=== PATIENT | male | born 1950 | race Caucasian/White ===

== ENCOUNTER → 2017-02-21 | Outpatient (CLI) | payer OTHER, BC ==
[~2017-02-21] VITALS: Ht 180.3 cm; Wt 84.8 kg
[~2017-02-21] MED LIST: ACETAMINOPHEN-1 EAC1 PO; ALERTNESS AID200 MG PO; AMBIEN 5 MG TABL5 M1 PO; ASPIR 8181 MG PO; BENADRYL25 MG PO; BENTYL 10 MG CA10 MG PO; CIALIS5 MG PO; CLOBETASOL EMOL15 GM TP; CRESTOR10 MG PO; DIGESTIVE PROB1 EACH PO; GAVISCON 80-141 EACH PO; GLUCOSAMINE CH1 EAC7 PO; MYLANTA; NIZORAL A-D200 ML TP; PEPCID20 MG PO; PROTONIX40 M1 PO; SONATA10 MG PO; TUMS PO; UNICOMPLEX M TA1 TA1 PO; VALIUM5 MG PO; WELCHOL 625 MG625 M1 PO; WELLBUTRIN XL300 MG PO; XANAX 0.25 MG0.25 MG PO
--- NOTE | ~2017-02-21 | HPC ---
[facility] [address] [address] PAIN MANAGEMENT CONSULTATION Name: STEPHANIE QUIÑONEZ Room #: REG JAYLA Seals.#: [id number] Admission: 02/21/17 Attend Phys: Lorne Cross MD Discharge: Date of : 48 Report #: [id number] THIS REPORT FOR: //name// CC: ALBERTO Cross DATE OF REGISTRATION: 02/21/2017. Followup visit for low back pain with radiculopathy. HISTORY OF PRESENT ILLNESS: The patient is in the clinic today for relatively short visit talked for only about 15 minutes before proceeding on for an epidural injection. He has done remarkably well with the injections and his and he both report that has been a dramatic decrease in his pain and this is also resulted in improvement in his mood. Both are quite pleased. Pain is returning a bit and his have scheduled for a vacation upcoming. He would like another injection today. Pain is reported as 2 with medication 4 at its worse. Pain is across his low back and radiates down into his legs. MEDICATIONS: Reviewed and reconciled, unchanged from previous visits. ALLERGIES: None. PHYSICAL EXAMINATION: GENERAL: He is very loquacious, obsessive compulsive, pleasantly so, 67-year-old. VITAL SIGNS: His blood pressure is 128/75, heart rate 74. EXTREMITIES: He has pain and tenderness across his low back and positive straight leg raising discomfort, worse on the left than the right. IMPRESSION: Chronic low back pain with radiculopathy. PROCEDURE: Epidural steroid injection under fluoroscopic guidance. We will performance it L4-L5, where he has a spondylolisthesis. PROCEDURE: Epidural steroid injection under fluoroscopic guidance. PROCEDURE IN DETAIL: He was taken to fluoroscopic suite, placed prone, skin prepped with ChloraPrep. Skin anesthetized over L4-L5. A 20-gauge Tuohy epidural needle advanced first attempt in the epidural space with loss of resistance. There was no blood or CSF aspirated. 1 mL of Omnipaque was injected. Good spread of dye was observed was followed by 2 mL of 0.5% lidocaine mixed with 80 mg of triamcinolone. He tolerated the procedure well and was observed for 45 minutes and discharged. [facility] [address] [place] [address] PAIN MANAGEMENT CONSULTATION Name: STEPHANIE QUIÑONEZ Room #: REG [facility].#: [id number] Admission: 02/21/17 Attend Phys: Lorne Cross MD Discharge: Date of : 48 Report #: [id number] Followup visit planned as needed. By: [id number] Lorne Cross MD /nt
[2017-02-21 14:33] VITALS: BP 129/88
== END | disposition home or self-care (01) ==
LOC: PAIN 07:12
DX: M54.16 Radiculopathy, lumbar region (principal); M43.16 Spondylolisthesis, lumbar region; G89.29 Other chronic pain

== ENCOUNTER → 2017-06-17 | Outpatient (CLI) | payer OTHER, BC ==
[~2017-06-17] VITALS: Ht 180.3 cm; Wt 90.4 kg
[2017-06-17 14:21] VITALS: BP 147/88
== END | disposition home or self-care (01) ==
LOC: PAIN 07:26
DX: M54.16 Radiculopathy, lumbar region (principal); G89.29 Other chronic pain; Z79.899 Other long term (current) drug therapy

== ENCOUNTER → 2017-10-21 | Outpatient (CLI) | payer OTHER, BC ==
[~2017-10-21] VITALS: Ht 180.3 cm; Wt 93.7 kg
--- NOTE | ~2017-10-21 | HPC ---
[facility] [address] [address] [address] PAIN MANAGEMENT CONSULTATION Name: STEPHANIE QUIÑONEZ Room #: REG JAYLA SealsMarco Antonio#: [id number] Admission: 10/21/17 Attend Phys: Lorne Cross MD Discharge: Date of : 48 Report #: [id number] THIS REPORT FOR: //name// CC: ALBERTO Cross DATE OF SERVICE: 10/21/2017 Followup visit for recurrent lumbar radiculopathy. The patient returns to the pain clinic today for an epidural injection. The chart will reflect that he has been receiving injections almost like clockwork every 4 months. He says that it takes about a week for the pain to begin to pablito and then he has substantial greater than 90% pain relief that persists for over 2 months to 3 months. When the pain gradually begins to return, he in time comes back to the clinic for another injection. He has an occasional flare during the four month interval, but not severe enough to warrant return to the clinic and he takes a little bit of Tylenol No. 3 as needed. Other painful concerns are osteoarthritis of the right knee. He has been receiving Synvisc injections taking his last shot before . It took about two weeks for that to take effect, but he is also now walking better. He does not smoke. We discussed exercise and the importance of doing it. He does not use opioid medication. He has a primary care physician, Dr. Alberto Green, who follows him for medical conditions. He does not have hypertension. His osteoarthritis is confined primarily to his right knee. I do not prescribe his opioids, but he understands that Tylenol No. 3 is a mild opioid and he must be careful in safeguarding it. We have discussed the opioid crisis in [place] in the past. I think his use is appropriate. PHYSICAL EXAMINATION: A pleasant 67-year-old. Blood pressure 140/90, heart rate 82, respirations 14 and BMI is 28.8. He is able to easily move from sitting to standing position and ambulates with only mild antalgic features. Mild tenderness of the right knee. Straight leg raising is mildly positive on the right. He has pain across his low back with forward flexion and extension. He has tenderness in the paravertebral region. IMPRESSION: Chronic low back pain with radiculopathy. Degenerative disk disease at L4-L5 and L5-S1. He has responded beautifully to injections at L4-L5. I will repeat the same today under fluoroscopic guidance. Risks and benefits discussed. PROCEDURE: Lumbar epidural steroid injection, L4-L5 [place] [address] PAIN MANAGEMENT CONSULTATION Name: STEPHANIE QUIÑONEZ Room #: REG JAYLA Moore#: [id number] Admission: 10/21/17 Attend Phys: Lorne Cross MD Discharge: Date of : 48 Report #: [id number] Skin was prepped with ChloraPrep and anesthetized. A 20-gauge Tuohy epidural needle advanced in the epidural space with loss of resistance on the first attempt. There was no blood or CSF aspirated. 1 mL of Omnipaque injected with good spread of dye observed followed by 4 mL of 1% lidocaine mixed with 80 mg of triamcinolone. He tolerated the procedure well and was observed for 45 minutes in the recovery room and then discharged. Follow up as needed. No medications were written today for the patient. By: [id number] Lorne Cross MD /nt
[2017-10-21 14:07] VITALS: BP 140/90
== END | disposition home or self-care (01) ==
LOC: PAIN 07:16
DX: M51.36 Other intervertebral disc degeneration, lumbar region (principal); G89.29 Other chronic pain; M17.11 Unilateral primary osteoarthritis, right knee; Z79.891 Long term (current) use of opiate analgesic; Z79.82 Long term (current) use of aspirin; Z79.899 Other long term (current) drug therapy

== ENCOUNTER → 2018-05-26 | Outpatient (CLI) | payer OTHER, BC ==
[~2018-05-26] VITALS: Ht 180.3 cm; Wt 87.5 kg
--- NOTE | ~2018-05-26 | HPC ---
[facility] [address] [place] [address] PAIN MANAGEMENT CONSULTATION Name: STEPHANIE QUIÑONEZ Room #: REG JAYLA SealsMarco Antonio#: [id number] Admission: 05/26/18 Attend Phys: Lorne Cross MD Discharge: Date of : 48 Report #: [id number] THIS REPORT FOR: //name// CC: ALEENA Sheffield Physician staff Lorne Cross DATE OF SERVICE: 05/26/2018 Followup visit for lumbar radiculopathy. I last saw the patient towards the end of January when he received an epidural injection. He always gets some relief that varies in degree and duration, but the response is generally quite good. It improves his ability to be active and functional around the house. He would like another epidural injection today. I did not provide medication for him. All of his pain medications are provided by Dr. Aleena Sheffield. His only opioid medication is Tylenol No. 3, which he takes for severe pain episodes. He scores his pain today as a 3-4 worse with standing, lifting and bending. Pain radiates from the low back down into his legs. It is generally worse on left, but today right seems to be bothersome, so he typically has bilateral lumbar radiculopathy. All medications are reviewed and reconciled. He is on no blood thinners. ALLERGIES: None. X-ray demonstrates a spondylolisthesis at L4-L5, grade 1 facet arthropathy and foraminal compromise. No central stenosis. PHYSICAL EXAMINATION: He is pleasant. Blood pressure 135/81, heart rate 67 and respirations 16. BMI 26.9. Tenderness across the low back and some pain with forward flexion. Straight leg raising is positive also bilaterally into the back and hips. Back extension increases symptoms of discomfort in the back. IMPRESSION: Low back pain with spondylolisthesis and radiculopathy. RECOMMENDATIONS: Epidural steroid injection under fluoroscopic guidance. PROCEDURE: He was taken to the fluoroscopic suite, placed prone, skin prepped with ChloraPrep. Skin anesthetized over the L4-L5 interspace. Needle was advanced into the midline using loss of resistance. There was no blood or CSF [facility] [address] [place] [address] PAIN MANAGEMENT CONSULTATION Name: STEPHANIE QUIÑONEZ Room #: REG [facility].#: [id number] Admission: 05/26/18 Attend Phys: Lorne Cross MD Discharge: Date of : 48 Report #: [id number] aspirated. 1 mL of Omnipaque injected with good spread of dye observed into the epidural space followed by 3 mL of 0.5% lidocaine. He tolerated the procedure well and was observed for 45 minutes and discharged. Followup visit planned as needed. <ELECTRONICALLY SIGNED> By: Lorne Cross MD 05/28/18 1622 [id number] Lorne Cross MD /nt
[2018-05-26 13:34] VITALS: BP 135/81
== END | disposition home or self-care (01) ==
LOC: PAIN 06:27
DX: M54.16 Radiculopathy, lumbar region (principal); G89.29 Other chronic pain; M43.16 Spondylolisthesis, lumbar region; Z98.890 Other specified postprocedural states; Z79.82 Long term (current) use of aspirin; Z79.899 Other long term (current) drug therapy

== ENCOUNTER → 2018-09-22 | Outpatient (CLI) | payer OTHER, BC ==
[~2018-09-22] VITALS: Ht 180.3 cm; Wt 86.5 kg
[~2018-09-22] MED LIST changes: +FLOMAX0.4 MG PO
--- NOTE | ~2018-09-22 | HPC ---
[facility] [address] [place] [address] PAIN MANAGEMENT CONSULTATION Name: STEPHANIE QUIÑONEZ Room #: REG JAYLA Teresa#: [id number] Admission: 09/22/18 Attend Phys: Lorne Cross MD Discharge: Date of : 48 Report #: [id number] THIS REPORT FOR: //name// CC: TWYLA SALOMON Physician staff Lorne Lopez DATE OF SERVICE: 09/22/2018 Followup visit for chronic low back pain with radiculopathy. The patient returns to the pain clinic today for an epidural injection. He gets good relief from his injections. His last injection was in May. He has evidence of spondylolisthesis at L4-L5, grade 1 and facet arthropathy with neural foraminal compromise. This is felt to be the cause of his pain. He responds beautifully. He reports that he has been diagnosed with prostate cancer by biopsy. He has scheduled at [facility], a robotic prostatectomy in November. He has done quite a bit of research as one might expect. His and he both agreed that he is obsessive compulsive. He has had his questions answered and is prepared for his ongoing surgery. He scores his pain today without activities at 2/10, but it can increase significantly with standing, lifting or bending. Medications provided outside of the clinic have also been helpful. I have reviewed all medication from the electronic medical record. PHYSICAL EXAMINATION: He is pleasant, slender 68-year-old gentleman with a BMI of 26.6. He moves from sitting to standing position and walks with mild antalgic features. His blood pressure is 144/76, heart rate 75 and respirations 16. There is some pain across his low back with flexion and extension. Straight leg raising reproduces pain bilaterally in the L4-L5 distribution. Sensation is intact. No focal weakness is noted. IMPRESSION: Chronic low back pain with spondylolisthesis and radiculopathy. He has excellent response measuring in months following an epidural injection and would like to proceed today with another injection. PROCEDURE: He was taken to the fluoroscopic suite, placed prone, skin prepped with ChloraPrep. Skin was anesthetized over the L4-L5 interspace. A 20-gauge Tuohy epidural needle advanced in the epidural space with loss of resistance technique. There was no blood or CSF aspirated. 1 mL of Omnipaque injected. Good spread of dye observed into the epidural space followed by 3 mL of 0.5% [address] [address] PAIN MANAGEMENT CONSULTATION Name: STEPHANIE QUIÑONEZ [facility] #: [facility] [id number] Admission: 09/22/18 Attend Phys: Lorne Cross MD Discharge: Date of : 48 Report #: [id number] lidocaine mixed with 80 mg of triamcinolone. He tolerated the procedure well and was observed for 45 minutes and discharged. Follow up as needed. By: [id number] Lorne Cross MD /nanda
[2018-09-22 13:51] VITALS: BP 144/76
== END | disposition home or self-care (01) ==
LOC: PAIN 08:21
DX: M54.16 Radiculopathy, lumbar region (principal); G89.29 Other chronic pain; M43.16 Spondylolisthesis, lumbar region; M46.96 Unspecified inflammatory spondylopathy, lumbar region; Z79.82 Long term (current) use of aspirin; Z79.899 Other long term (current) drug therapy; Z98.890 Other specified postprocedural states

== ENCOUNTER → 2019-02-16 | Outpatient (CLI) | payer OTHER, BC ==
[~2019-02-16] VITALS: Ht 180.3 cm; Wt 86.2 kg
[~2019-02-16] MED LIST changes: +BIOTIN1000 MCG PO; +LAMISIL AT 1% C12 G1 TOP; +LOPERAMIDE 2 MG2 M1 PO; +ZOLOFT50 MG PO
--- NOTE | ~2019-02-16 | HPC ---
[facility] [address] [address] [address] PAIN MANAGEMENT CONSULTATION Name: STEPHANIE QUIÑONEZ Room #: REG JAYLA Seals.#: [id number] Admission: 02/16/19 ������������������ Attend Phys: Lorne Cross MD Discharge: ������������������ Date of : 48 Report #: [id number] THIS REPORT FOR: //name// CC: PAM FLYNN Physician staff Lorne Cross DATE OF SERVICE: 02/16/2019 Followup visit for chronic low back pain with radiculopathy, lumbar spondylolisthesis, L4-L5. The patient returns to pain clinic today requesting an epidural injection. We have been performing epidural injections four times annually and he has had excellent response to each injection. He completed his robotic prostatectomy in November. He has done well. Dr. Thomas performed the surgery at and all went well. He has recovered nicely from his surgery. He was doing reasonably well from back standpoint up until about two weeks ago. He has gradually had increasing pain. Pain is now more severe and he is taking more Tylenol No. 3. He takes no more than two tablets daily typically and this provides some relief. PQRS review shows that there is no history of osteoarthritis. His BMI is 26.5. His pain intensity with pain medication is 2/10. It can be twice to three times at high. He is not a fall risk, nor has he fallen. He is not on blood thinners, nor is he on medication for hypertension. I do not provide opioid medications and so, he has not signed an opioid agreement with our clinic. He is considered at low risk, having completed an opioid risk tool in our clinic. SOCIAL HISTORY: Denies use of tobacco, drinks alcohol socially with his . PHYSICAL EXAMINATION: Height 5 feet 11 inches, weight 190 pounds, BMI 26.5. His blood pressure 139/76, heart rate 66, respirations 14. Moves easily from sitting to standing position. He is wearing suspenders. He has been wearing them since his prostate surgery for comfort. He has some tenderness across his low back pain with forward flexion and extension, which reproduces some pain radiating into the hips, but no significant radicular component today. MRI scan shows spondylolisthesis L4-L5 and pars defect. IMPRESSION: Chronic low back pain with intermittent radiculopathy and spondylolisthesis, L4-L5. Pain follows an L4-L5 distribution. [address] [address] PAIN MANAGEMENT CONSULTATION Name: STEPHANIE QUIÑONEZ Room #: REG JAYLA Teresa#: [id number] Admission: 02/16/19 ������������������ Attend Phys: Lorne Cross MD Discharge: ������������������ Date of : 48 Report #: [id number] RECOMMENDATION: Epidural steroid injection under fluoroscopic guidance. PROCEDURE: The patient was taken to fluoroscopic suite for treatment, placed prone, skin prepped with ChloraPrep. Skin anesthetized over the L4-L5 interspace. A 20-gauge Tuohy epidural needle advanced into the epidural space in the first attempt with loss of resistance. There was no blood or CSF aspirated. 1 mL of Omnipaque injected, nice spread of dye observed into the epidural space followed by 3 mL of 0.5% lidocaine mixed with 80 mg of triamcinolone. He tolerated the procedure well, was observed for 45 minutes and discharged. Followup visit as needed. ��������������������������������������������� ���������������������������������������� By: ��������������������������������������������� [id number] Lorne Cross MD /nt
[2019-02-16 14:17] VITALS: BP 139/76
--- NOTE | 2019-02-16 14:33 | NUR ---
Pain Clinic Assessment: 1. History of Osteoarthritis: Not Applicable History of Rheumatoid Arthritis: Not Applicable 2. Height: 5 ft. 11 in. 180.3 cm. Weight: 190.0 lb. oz. 86.184 kg. Patient's BMI: 26.5 3. Vital Signs: BP: 139/76 Pulse: 66 Resp: 14 Temp: 02 Sat: 97 ECG Mon: 4. Pain Intensity: 2-TOOK PAIN MED 5. Fall Risk: Dizziness: N Needs help standing or walking: N Fallen in the last 3 months: N Fall risk comments: 6. Patient on Blood Thinner: None 7. History of Hypertension: N 8. Opioid Therapy greater than 6 weeks: N Opiate Contract Signed: 9. Risk Assessment Tool Provided: 0-low risk 10. Functional Assessment Tool: 11. Recreational Drug Use: Never Drug Type: Tobacco Use: Never Smoker Tobacco Type: Amount or Packs/day: How Many Years: Alcohol Use: Yes Frequency: Quant:
== END | disposition home or self-care (01) ==
LOC: PAIN 07:11
DX: M54.16 Radiculopathy, lumbar region (principal); G89.29 Other chronic pain; M43.16 Spondylolisthesis, lumbar region; Z98.890 Other specified postprocedural states; Z79.899 Other long term (current) drug therapy

== ENCOUNTER → 2019-05-21 | Outpatient (CLI) | payer OTHER, BC ==
[~2019-05-21] VITALS: Ht 180.3 cm; Wt 91.1 kg
--- NOTE | ~2019-05-21 | HPC ---
[facility] [address] [address] PAIN MANAGEMENT CONSULTATION Name: STEPHANIE QUIÑONEZ Room #: REG JAYLA Teresa#: [id number] Admission: 05/21/19 ������������������ Attend Phys: Lorne Cross MD Discharge: ������������������ Date of : 48 Report #: [id number] THIS REPORT FOR: //name// CC: FAM unknown TWYLA AIME Lorne Cross DATE OF SERVICE: 05/21/2019 Followup visit for chronic low back pain with radiculopathy. Lumbar spondylosis with stenosis at L4-L5. The patient returns to the clinic today for an epidural injection. It has been 3-1/2 months since his last injection. Continues to report improvement following injections for a period of months, but then the pain gradually returns. He is recovering from his prostatectomy. He says he is doing reasonably well. He has a new physician, they will be seeing tomorrow at . Also continued to complain of other aches and pains including pain in his right knee, which has been treated with injections. PQRS: Positive for osteoarthritis, particularly of the right knee and lumbar spondylosis, associated with the changes of the facet joints around the level of his stenotic segment. His height is 5 feet 11 inches and his weight 220. BMI is 28. He has a pain intensity at rest of 1-2/10, but it can increase significantly with movement. He is not a fall risk, nor has he fallen in the last 3 months. He is on no blood thinning medication nor does he take medication for hypertension. He does not take opioids from our office, but takes a small amount of Tylenol #3 from his primary care physician. He has completed an opioid risk tool and is considered at low risk for addiction. He denies tobacco, but drinks modest amount of alcohol in a social setting with his . PHYSICAL EXAMINATION: Pleasant, alert, and oriented, moves from sitting to standing position, ambulates without antalgic features. Tenderness across his low back and positive straight leg raising that radiates pain primarily in the left leg. IMPRESSION: Lumbar spondylosis L4-L5 with pars defect. L4-L5 radiculopathy on the left. PROCEDURE: Epidural steroid injection under fluoroscopic guidance. PROCEDURE: Taken to fluoroscopic suite, placed prone, skin prepped with [address] [address] PAIN MANAGEMENT [facility]ATION [facility] #: REG JAYLA Moore#: [id number] Admission: 05/21/19 ������������������ Attend Phys: Lorne Cross MD Discharge: ������������������ Date of : 48 Report #: [id number] ChloraPrep. Skin anesthetized over the L4-L5 interspace. A 20-gauge Tuohy epidural needle was advanced in the epidural space with loss of resistance technique. No blood in the CSF was aspirated. A 1 mL of Omnipaque was injected. Good spread of dye observed in the epidural space followed by 3 mL of 0.5% lidocaine with 80 mg of triamcinolone. He tolerated the procedure well, was observed for 45 minutes and discharged. Follow up as needed. ��������������������������������������������� ���������������������������������������� By: ��������������������������������������������� [id number] Lorne Cross MD /nt
[2019-05-21 14:13] VITALS: BP 137/88
--- NOTE | 2019-05-21 14:55 | NUR ---
Pain Clinic Assessment: 1. History of Osteoarthritis: Not Applicable History of Rheumatoid Arthritis: Not Applicable 2. Height: 5 ft. 11 in. 180.3 cm. Weight: 200.8 lb. oz. 91.082 kg. Patient's BMI: 28.0 3. Vital Signs: BP: 137/88 Pulse: 70 Resp: 14 Temp: 02 Sat: 98 ECG Mon: 4. Pain Intensity: 1-2 5. Fall Risk: Dizziness: N Needs help standing or walking: N Fallen in the last 3 months: N Fall risk comments: 6. Patient on Blood Thinner: None 7. History of Hypertension: N 8. Opioid Therapy greater than 6 weeks: N Opiate Contract Signed: 9. Risk Assessment Tool Provided: 0-low risk 10. Functional Assessment Tool: 11. Recreational Drug Use: Never Drug Type: Tobacco Use: Never Smoker Tobacco Type: Amount or Packs/day: How Many Years: Alcohol Use: Yes Frequency: Quant:
== END | disposition home or self-care (01) ==
LOC: PAIN 12:46
DX: M47.26 Other spondylosis with radiculopathy, lumbar region (principal); G89.29 Other chronic pain; M17.11 Unilateral primary osteoarthritis, right knee; Z79.899 Other long term (current) drug therapy; Z90.79 Acquired absence of other genital organ(s); Z98.890 Other specified postprocedural states

== ENCOUNTER → 2019-09-17 | Outpatient (CLI) | payer OTHER, BC ==
[~2019-09-17] VITALS: Ht 180.3 cm; Wt 90.6 kg
[~2019-09-17] MED LIST changes: +FUROSEMIDE 20 M20 MG PO; +ROSUVASTATIN CA20 MG PO; +VENTOLIN HFA 1818 GM INH
[2019-09-17 14:03] VITALS: BP 122/83
--- NOTE | 2019-09-17 14:35 | NUR ---
Pain Clinic Assessment: 1. History of Osteoarthritis: Not Applicable History of Rheumatoid Arthritis: Not Applicable 2. Height: 5 ft. 11 in. 180.3 cm. Weight: 199.8 lb. oz. 90.629 kg. Patient's BMI: 27.9 3. Vital Signs: BP: 122/83 Pulse: 72 Resp: 16 Temp: 02 Sat: 100 ECG Mon: 4. Pain Intensity: 3 WITH PROLONGED SITTING 5. Fall Risk: Dizziness: N Needs help standing or walking: N Fallen in the last 3 months: N Fall risk comments: 6. Patient on Blood Thinner: None 7. History of Hypertension: N 8. Opioid Therapy greater than 6 weeks: N Opiate Contract Signed: 9. Risk Assessment Tool Provided: 0-low risk 10. Functional Assessment Tool: 11. Recreational Drug Use: Never Drug Type: Tobacco Use: Never Smoker Tobacco Type: Amount or Packs/day: How Many Years: Alcohol Use: Yes Frequency: Quant:
== END | disposition home or self-care (01) ==
LOC: PAIN 07:04
DX: M47.26 Other spondylosis with radiculopathy, lumbar region (principal); M43.16 Spondylolisthesis, lumbar region; Z98.890 Other specified postprocedural states; Z79.899 Other long term (current) drug therapy; Z90.49 Acquired absence of other specified parts of digestive tract; Z87.442 Personal history of urinary calculi

== ENCOUNTER → 2020-01-14 | Outpatient (CLI) | payer OTHER, BC ==
[~2020-01-14] VITALS: Ht 180.3 cm; Wt 92.5 kg
[~2020-01-14] MED LIST changes: +AMBIEN CR12.5 MG PO; +BREO ELLIPTA 21 EACH INH; +VALIUM10 MG PO
--- NOTE | ~2020-01-14 | HPC ---
[facility] [place] [address] PAIN MANAGEMENT CONSULTATION Name: STEPHANIE QUIÑONEZ Room #: REG JAYLA [facility].#: [id number] Admission: 01/14/20 Attend Phys: Lorne Cross MD Discharge: Date of : 48 Report #: [id number] THIS REPORT FOR: cc: [facility] - Clinic physician unknown [facility] - Clinic physician unknown Lorne Cross MD ~ CC: [facility] unknown Lorne Cross DATE OF SERVICE: 01/14/2020 Followup visit for chronic low back pain with radiculopathy. The patient is a longstanding patient of the clinic who has responded favorably to epidural injections about every 3-4 months. His last injection was performed on 09/17/2019 nearly 4 months ago. Pain is now returning. He has been able to improve his day-to-day activities and he accounts improvement in his enjoyment of life from a level of 8/10 interference to 2/10 interference by pain to the beneficial effects of his epidural injections. He is here today reporting a pain score of 1. Although when the pain is intermittently increased as it was last week, the pain can be a 7-8. Pain is in his low back, right hip, right leg and follows a dermatomal distribution. He has spondylolisthesis and we would inject him at that level or above. It is grade 1. There may also be some discogenic pain contributing to pain across his low back. MEDICATIONS: Zolpidem, Valium, Breo, Cialis, rosuvastatin, Lasix, bupropion, Tylenol No. 3, multivitamins, clobetasol, Nizoral, Sonata, Crestor. ALLERGIES: None. PHYSICAL EXAMINATION: GENERAL: Pleasant gentleman. VITAL SIGNS: Blood pressure 154/90, heart rate 91. He moves independently. From sitting to standing, his gait is mildly antalgic. He has pain across his lumbosacral segment, pain with forward flexion, extension, rotation, and side to side movements. Sensation is normal. No focal weakness is noted. IMPRESSION: Low back pain with radiculopathy, which has responded nicely to epidural injections. PROCEDURE: Epidural injection L4-L5 under fluoroscopic guidance. [facility] [address] [place] [address] PAIN MANAGEMENT CONSULTATION Name: STEPHANIE QUIÑONEZ Room #: REG JAYLA [facility].#: [id number] Admission: 01/14/20 Attend Phys: Lorne Cross MD Discharge: Date of : 48 Report #: [id number] DESCRIPTION OF PROCEDURE: After informed consent, he was taken to the fluoroscopic suite, placed prone, skin prepped with ChloraPrep. Skin anesthetized over the L4-L5 interspace. A 20-gauge Tuohy epidural needle advanced into the epidural space with loss of resistance technique. There was no blood or CSF aspirated. A 1 mL of Omnipaque injected. Good spread of dye observed in the epidural space followed by 3 mL of 0.5% lidocaine mixed with 80 mg triamcinolone. He tolerated the procedure well and was observed for 45 minutes and discharged. Followup visit planned as needed. By: [id number] Lorne Cross MD /nt
[2020-01-14 13:55] VITALS: BP 160/101
--- NOTE | 2020-01-14 14:24 | NUR ---
Pain Clinic Assessment: 1. History of Osteoarthritis: Not Applicable History of Rheumatoid Arthritis: Not Applicable 2. Height: 5 ft. 11 in. 180.3 cm. Weight: 204.0 lb. oz. 92.534 kg. Patient's BMI: 28.5 3. Vital Signs: BP: 160/101 Pulse: 91 Resp: 14 Temp: 02 Sat: 95 ECG Mon: 4. Pain Intensity: 1 5. Fall Risk: Dizziness: N Needs help standing or walking: N Fallen in the last 3 months: N Fall risk comments: 6. Patient on Blood Thinner: None 7. History of Hypertension: N 8. Opioid Therapy greater than 6 weeks: N Opiate Contract Signed: 9. Risk Assessment Tool Provided: 0-low risk 10. Functional Assessment Tool: 11. Recreational Drug Use: Never Drug Type: Tobacco Use: Never Smoker Tobacco Type: Amount or Packs/day: How Many Years: Alcohol Use: Yes Frequency: Quant:
== END | disposition home or self-care (01) ==
LOC: PAIN 07:04
DX: M54.16 Radiculopathy, lumbar region (principal); M43.16 Spondylolisthesis, lumbar region; G89.29 Other chronic pain; Z98.890 Other specified postprocedural states; Z79.899 Other long term (current) drug therapy

== ENCOUNTER → 2021-02-06 | Outpatient (CLI) | payer OTHER, BC ==
[~2021-02-06] VITALS: Ht 180.3 cm; Wt 83.9 kg
[~2021-02-06] MED LIST changes: +AMBIEN 10 MG TA10 MG PO; +ELIQUIS2.5 MG PO
[2021-02-06 12:27] VITALS: BP 141/93
--- NOTE | 2021-02-06 12:36 | NUR ---
Pain Clinic Assessment: 1. History of Osteoarthritis: Not Applicable History of Rheumatoid Arthritis: Not Applicable 2. Height: 5 ft. 11 in. 180.3 cm. Weight: 185.0 lb. oz. 83.916 kg. Patient's BMI: 25.8 3. Vital Signs: BP: 141/93 Pulse: 78 Resp: 16 Temp: 02 Sat: 97 ECG Mon: 4. Pain Intensity: 5 5. Fall Risk: Dizziness: N Needs help standing or walking: N Fallen in the last 3 months: N Fall risk comments: 6. Patient on Blood Thinner: None 7. History of Hypertension: N 8. Opioid Therapy greater than 6 weeks: N Opiate Contract Signed: 9. Risk Assessment Tool Provided: 0-low risk 10. Functional Assessment Tool: 11. Recreational Drug Use: Never Drug Type: Tobacco Use: Never Smoker Tobacco Type: Amount or Packs/day: How Many Years: Alcohol Use: Yes Frequency: Daily Quant: 1 BEER
== END | disposition home or self-care (01) ==
LOC: PAIN 07:35
PROVIDERS: ATTEND Anesthesiology Pain Medicine
DX: G89.29 Other chronic pain (principal); M47.26 Other spondylosis with radiculopathy, lumbar region; M17.11 Unilateral primary osteoarthritis, right knee; M54.5 Low back pain

== ENCOUNTER → 2021-06-05 | Outpatient (CLI) | payer OTHER, BC ==
[~2021-06-05] VITALS: Ht 180.3 cm; Wt 81.6 kg
[~2021-06-05] MED LIST changes: +ALUMINUM H320 MG/5 M PO; +BIOTIN PO; +CAFFEINE PO; +LOPERAMIDE2 MG PO; +VITAMIN D3 COM1 EACH PO
[2021-06-05 14:11] VITALS: BP 144/86
--- NOTE | 2021-06-05 14:16 | NUR ---
Pain Clinic Assessment: 1. History of Osteoarthritis: Not Applicable History of Rheumatoid Arthritis: Not Applicable 2. Height: 5 ft. 11 in. 180.3 cm. Weight: 180.0 lb. oz. 81.648 kg. Patient's BMI: 25.1 3. Vital Signs: BP: 144/86 Pulse: 68 Resp: 16 Temp: 02 Sat: 98 ECG Mon: 4. Pain Intensity: 4 5. Fall Risk: Dizziness: N Needs help standing or walking: N Fallen in the last 3 months: N Fall risk comments: 6. Patient on Blood Thinner: None 7. History of Hypertension: N 8. Opioid Therapy greater than 6 weeks: N Opiate Contract Signed: 9. Risk Assessment Tool Provided: 0-low risk 10. Functional Assessment Tool: 11. Recreational Drug Use: Never Drug Type: Tobacco Use: Never Smoker Tobacco Type: Amount or Packs/day: How Many Years: Alcohol Use: Yes Frequency: Daily Quant: 1
== END | disposition home or self-care (01) ==
LOC: PAIN 07:48
PROVIDERS: ATTEND Anesthesiology Pain Medicine
DX: M51.16 Intervertebral disc disorders with radiculopathy, lumbar region (principal); M47.27 Other spondylosis with radiculopathy, lumbosacral region; M43.16 Spondylolisthesis, lumbar region; G89.29 Other chronic pain; Z98.890 Other specified postprocedural states; Z79.899 Other long term (current) drug therapy

== ENCOUNTER → 2021-10-09 | Outpatient (CLI) | payer OTHER, BC ==
[~2021-10-09] VITALS: Ht 180.3 cm; Wt 83.5 kg
[2021-10-09 13:57] VITALS: BP 151/95
--- NOTE | 2021-10-09 14:25 | NUR ---
Pain Clinic Assessment: 1. History of Osteoarthritis: Not Applicable History of Rheumatoid Arthritis: Not Applicable 2. Height: 5 ft. 11 in. 180.3 cm. Weight: 184.0 lb. oz. 83.462 kg. Patient's BMI: 25.7 3. Vital Signs: BP: 151/95 Pulse: 79 Resp: 18 Temp: 02 Sat: 98 ECG Mon: 4. Pain Intensity: 4 5. Fall Risk: Dizziness: N Needs help standing or walking: N Fallen in the last 3 months: N Fall risk comments: 6. Patient on Blood Thinner: valeriequis 7. History of Hypertension: N 8. Opioid Therapy greater than 6 weeks: N Opiate Contract Signed: 9. Risk Assessment Tool Provided: 0-low risk 10. Functional Assessment Tool: 11. Recreational Drug Use: Never Drug Type: Tobacco Use: Never Smoker Tobacco Type: Amount or Packs/day: How Many Years: Alcohol Use: Yes Frequency: Quant:
== END | disposition home or self-care (01) ==
LOC: PAIN 10:46
PROVIDERS: ATTEND Anesthesiology Pain Medicine
DX: M47.26 Other spondylosis with radiculopathy, lumbar region (principal); M43.16 Spondylolisthesis, lumbar region; M54.59 Other low back pain; G89.29 Other chronic pain; Z98.890 Other specified postprocedural states; Z79.899 Other long term (current) drug therapy

== ENCOUNTER → 2022-01-01 | Outpatient (CLI) | payer OTHER, BC ==
[~2022-01-01] VITALS: Ht 180.3 cm; Wt 79.8 kg
[2022-01-01 14:09] VITALS: BP 144/88
--- NOTE | 2022-01-01 14:35 | NUR ---
Pain Clinic Assessment: 1. History of Osteoarthritis: Not Applicable History of Rheumatoid Arthritis: Not Applicable 2. Height: 5 ft. 11 in. 180.3 cm. Weight: 176.0 lb. oz. 79.833 kg. Patient's BMI: 24.6 3. Vital Signs: BP: 144/88 Pulse: 67 Resp: 18 Temp: 02 Sat: 99 ECG Mon: 4. Pain Intensity: 2 5. Fall Risk: Dizziness: N Needs help standing or walking: N Fallen in the last 3 months: N Fall risk comments: 6. Patient on Blood Thinner: valeriequis 7. History of Hypertension: N 8. Opioid Therapy greater than 6 weeks: N Opiate Contract Signed: 9. Risk Assessment Tool Provided: 0-low risk 10. Functional Assessment Tool: 11. Recreational Drug Use: Never Drug Type: Tobacco Use: Never Smoker Tobacco Type: Amount or Packs/day: How Many Years: Alcohol Use: Yes Frequency: Weekly Quant: 1
== END | disposition home or self-care (01) ==
LOC: PAIN 12:39
PROVIDERS: ATTEND Anesthesiology Pain Medicine
DX: M54.16 Radiculopathy, lumbar region (principal); M54.59 Other low back pain; G89.29 Other chronic pain; M43.16 Spondylolisthesis, lumbar region; Z79.899 Other long term (current) drug therapy; Z98.890 Other specified postprocedural states; Z79.01 Long term (current) use of anticoagulants